=== PATIENT | female | born 1985 | race American Indian/Alaskan Native ===

== ENCOUNTER 2016-09-26 23:56 | Emergency (ER) | payer MEDICAID, OTHER ==
[2016-09-27 00:36] VITALS: BP 140/75
--- NOTE | 2016-09-27 05:04 | Emergency Department Report ---
HPI - General Chief Complaint: Earache Time Seen by Provider: 09/27/16 04:45 - HPI HPI: She is 31-year-old female presents to ED complaining of feeling a lump in the back of her neck and the right side. She states she felt a little lump today. So she decided to come in and get it looked. Patient denies any ear pain, ear drainage, sore throat, fever or any other problems. ED Past Medical Hx - Past Medical History Previous Medical History?: No Hx Hypertension: No Hx Diabetes: No Hx Deep Vein Thrombosis: No Hx Renal Disease: No Hx Sickle Cell Disease: No Hx Seizures: No Hx Asthma: No Hx HIV: No - Surgical History Past Surgical History?: Yes Additional Surgical History: csection X 2 - Social History Smoking Status: Current Every Day Smoker Substance Use Type: Marijuana - Medications Home Medications: Home Medications Medication Instructions Recorded Confirmed Last Taken Type Acetaminophen/Codeine 1 tab PO Q6H PRN #15 tab 02/02/14 Unknown Rx [Acetaminophen-Codeine #3 TAB] Fluconazole [Diflucan 200] 150 mg PO ONCE #1 tablet 02/02/14 Unknown Rx Penicillin Vk [Veetids TAB] 500 mg PO QID #40 tablet 02/02/14 Unknown Rx oxyCODONE /ACETAMINOPHEN [Percocet 1 tab PO Q4H PRN 02/02/14 02/02/14 02/02/14 18:30 History 5/325 mg] ED Review of Systems ROS: Stated complaint: LUMPS BEHIND RT EAR Other details as noted in HPI Constitutional: denies: chills, fever Eyes: denies: eye pain, eye discharge, vision change ENT: denies: ear pain, throat pain, dental pain, hearing loss, epistaxis, congestion Respiratory: denies: cough, shortness of breath, wheezing Cardiovascular: denies: chest pain, palpitations Endocrine: no symptoms reported Gastrointestinal: denies: abdominal pain, nausea, vomiting, diarrhea, constipation, hematochezia Genitourinary: denies: urgency, dysuria, discharge Musculoskeletal: denies: back pain, joint swelling, arthralgia Skin: denies: rash, lesions Neurological: denies: headache, weakness, paresthesias Psychiatric: denies: anxiety, depression Hematological/Lymphatic: denies: easy bleeding, easy bruising Physical Exam - Physical Exam Vital Signs: Vital Signs 09/27/16 00:31 Temperature 98.8 F Pulse Rate 88 Respiratory 18 Rate Blood Pressure 140/75 O2 Sat by Pulse 100 Oximetry Physical Exam: GENERAL: Alert and oriented x3, no apparent distress, Normal Gait, atraumatic. HEAD: Head is normocephalic and a-traumatic. EYES: Extra ocular muscles are intact. Pupils are equal, round, and reactive to light and accommodation. EARS: symetrical, atraumatic, non tender, ear canal clear and moderate cerumen, tympanic membrance non inflamed. gross auditory nml bilaterally. NOSE: Nose symetrical, Nontender,Nares appeared normal. MOUTH:Mouth is well hydrated and without lesions. Tonsils nonerythematous or swollen, Uvula midline, Tongue not elevated. Mucous membranes are moist. Posterior pharynx clear, no exudate or lesions. Patent airways. NECK: Supple. Non edematous, No cervical lymphadenopathy or thyromegaly. No C- spine tenderness. Full range of motion. Posterior auricular mild lymphadenopathy present on the right side, nontender to palpation LUNGS: Symetrical with respiration, No wheezing, no rales or crackles, CTAB. HEART: S1, S2 present, regular rate and rhythm without murmur, no rubs, no gallops. Non tender to palpation SKIN: Warm and dry, No lesions, No ulceration or induration present. ED Course Vital Signs 09/27/16 00:31 Temperature 98.8 F Pulse Rate 88 Respiratory 18 Rate Blood Pressure 140/75 O2 Sat by Pulse 100 Oximetry ED Medical Decision Making - Medical Decision Making 31-year-old female presents with postauricular lymphadenopathy ED course: Discussed patient will resolve on its own. Discussed the absent of any infections A is self-limiting and resolved on its own Discussed the follow up with primary care physician. Vital signs are stable patient is in no acute distress Critical care attestation.: If time is entered above; I have spent that time in minutes in the direct care of this critically ill patient, excluding procedure time. ED Disposition Clinical Impression: Lymphadenopathy, postauricular Disposition: [id number] TO HOME OR SELFCARE Is pt being admited?: No Does the pt Need Aspirin: No Condition: Stable Instructions: Lymphadenopathy (ED) Referrals: PRIMARY MD DINH [Primary Care Provider] - 3-5 Days DAVEY ARAGON MD [Referring] - 3-5 Days [facility] [Outside] - 3-5 Days [facility] [Outside] - 3-5 Days Forms: Accompanied Note, Work/School Release Form(ED) Time of Disposition: 05:10
== END 2016-09-27 05:15 | disposition home or self-care (01) ==
LOC: ED 23:56
DX: R59.1 Generalized enlarged lymph nodes (principal); F17.200 Nicotine dependence, unspecified, uncomplicated; F12.10 Cannabis abuse, uncomplicated; Z88.6 Allergy status to analgesic agent
CPT/HCPCS: 99282

== ENCOUNTER 2017-03-14 19:09 | Emergency (ER) | payer OTHER ==
[2017-03-14 21:32] VITALS: BP 128/81
== END 2017-03-15 19:35 | disposition left against medical advice (07) ==
LOC: ED 19:09
DX: R51 Headache (principal); Z53.21 Procedure and treatment not carried out due to patient leaving prior to being seen by health care provider